=== PATIENT | male | born 1970 | race Caucasian/White ===

== ENCOUNTER → 2021-02-25 12:52 | Outpatient (CLI) | payer OTHER, SELFPAY ==
--- NOTE | 2021-02-25 12:55 | XR_ITS ---
PROCEDURE: XR CHEST 2V CLINICAL HISTORY: covid follow up COMPARISON: No exams were available for comparison FINDINGS: The cardiomediastinal silhouette and pulmonary vascularity are within normal limits. There are no previous exams available for comparison. Bilateral areas of airspace disease in the mid and lower lung zones on both sides right more extensive than left with associated atelectatic or fibrotic changes. No effusions. No acute bony abnormalities. IMPRESSION: Bilateral airspace disease in the mid and lower lung zone suggesting pneumonia with associated atelectatic and/or fibrotic change. Dictated by: Maksim Baez MD 02/25/2021 13:46 Maksim Baez MD in [place] 02/25/2021 13:46
== END ==
PROVIDERS: PCP Family Medicine; Visit Provider Family Medicine
DX: R06.00 Dyspnea, unspecified (principal); B94.8 Sequelae of other specified infectious and parasitic diseases
CPT/HCPCS: 71046

== ENCOUNTER → 2021-04-09 13:14 | Outpatient (CLI) | payer OTHER, SELFPAY ==
--- NOTE | 2021-04-09 13:17 | XR_ITS ---
FINAL REPORT CLINICAL HISTORY: F/U covid COMPARISON: February 25, 2021 FINDINGS: Two views of the chest were obtained. The heart size and pulmonary vascularity are within normal limits. The mediastinum is normal. There are persistent bilateral pulmonary opacities consistent with pneumonia. There is slight improved aeration of the right lung base. There is no pneumothorax. The bony thorax is intact. IMPRESSION: Persistent bilateral pneumonia with slight improved aeration of the right lung base. Reviewed, Interpreted and Dictated by Nelson Hernandez III, MD Transcribed by Gonzalez Smith Authenticated by Nelson Hernandez III, MD on 04/09/2021 02:48:05 PM [facility]
== END ==
PROVIDERS: PCP Family Medicine; Visit Provider Family Medicine
DX: Z99.81 Dependence on supplemental oxygen (principal); U09.9 Post COVID-19 condition, unspecified
CPT/HCPCS: 71046

== ENCOUNTER → 2021-04-17 07:44 | Outpatient (CLI) | payer OTHER, SELFPAY ==
--- NOTE | 2021-04-17 07:44 | CT_ITS ---
FINAL REPORT TECHNIQUE: Axial images were obtained from the lung apex to the mid abdomen by computed tomography. Coronal reformatted images were obtained. This study was performed with techniques to keep radiation doses as low as reasonably achievable, (ALARA). Individualized dose reduction techniques using automated exposure control or adjustment of mA and/or kV according to the patient''s size were employed. CLINICAL HISTORY: hypoxia after COVID and recurrent pneumonia pt had covid in November 2019 has been on oxygen since FINDINGS: There is no axillary adenopathy. There is no hilar or mediastinal adenopathy. Heart size is normal. There is no pericardial or pleural effusion. Limited images of the upper abdomen demonstrates postsurgical changes from cholecystectomy. On the lung window images there are multiple linear opacities throughout both lungs consistent with moderate to severe scarring/fibrosis. There are mild bilateral pulmonary ground-glass opacities which may represent edema, alveolitis, or persistent pneumonia. IMPRESSION: Moderate to severe scarring fibrosis bilaterally. Mild bilateral ground-glass opacities, may represent edema, alveolitis or persistent pneumonia. Reviewed, Interpreted and Dictated by Nelson Hernandez III, MD Transcribed by Dixie Quach Authenticated by Nelson Hernandez III, MD on 04/17/2021 09:35:20 AM [facility]
== END ==
PROVIDERS: PCP Family Medicine; Visit Provider Family Medicine
DX: J18.9 Pneumonia, unspecified organism (principal); R09.02 Hypoxemia; U09.9 Post COVID-19 condition, unspecified
CPT/HCPCS: 71250

== ENCOUNTER → 2021-09-10 09:41 | Outpatient (CLI) | payer OTHER, SELFPAY ==
[2021-09-10 10:25] VITALS: PULSE 83; PULSE 86
== END ==
PROVIDERS: PCP Family Medicine; Visit Provider Internal Medicine Pulmonary Disease
DX: J84.10 Pulmonary fibrosis, unspecified (principal)
CPT/HCPCS: 94060; 94618; 94640; 94727; 94729

== ENCOUNTER → 2021-09-13 14:00 | Outpatient (CLI) | payer OTHER, SELFPAY ==
--- NOTE | 2021-09-13 14:03 | CT_ITS ---
FINAL REPORT TECHNIQUE: Thin section axial images of the chest were obtained by computed tomography with inspiration and expiration supine and prone inspiration. High-resolution technique was performed. CLINICAL HISTORY: SOA, HYPOXIA CT CHEST HIGH RESOLUTION X 3 COMPARISON: 04/17/2021 FINDINGS: There is no evidence of mediastinal mass or adenopathy. The heart size is normal. There is no pericardial or pleural effusion. There is extensive scarring and fibrosis in both lungs, particularly at the bases. Basilar prominence is consistent with chronic fibrosis. There is no definite evidence of emphysema. No bronchiectasis is identified. Limited images of the upper abdomen show the gallbladder to be absent. There is a tiny cyst in the right lobe of the liver measuring 6 mm. IMPRESSION: No evidence of bronchiectasis or emphysema. Basilar prominence consistent with chronic fibrosis. Reviewed, Interpreted and Dictated by Gee Dye MD Transcribed by Caitlyn White Authenticated and [facility]
== END ==
PROVIDERS: PCP Family Medicine; Visit Provider Internal Medicine Pulmonary Disease
DX: J84.9 Interstitial pulmonary disease, unspecified (principal)
CPT/HCPCS: 71250

== ENCOUNTER 2021-09-26 09:55 | Outpatient (RCR) | payer OTHER, SELFPAY | END 2022-01-02 14:22 | disposition home or self-care (01) | LOC: PT 09:55 | PROVIDERS: Visit Provider Internal Medicine Pulmonary Disease | DX: J84.10 Pulmonary fibrosis, unspecified (principal) | CPT/HCPCS: G0237; G0238; G0239 ==

== ENCOUNTER 2023-04-17 16:28 | Emergency (ER) | payer OTHER, SELFPAY ==
[2023-04-17 17:30] VITALS: BP 156/87; PULSE 89; RESP 18; TEMP 36.8; O2SAT 98; BMI 27.1
--- NOTE | 2023-04-17 17:44 | EXP.UTC ---
Discharge Plan Disposition Patient Disposition: Home, Self-Care Condition: Good Prescriptions Prescriptions: New amoxicillin-pot clavulanate 875-125 mg Tablet 1 tab PO Q12H Qty: 20 0RF ibuprofen [IBU] 800 mg tablet 800 mg PO TIDP PRN (Reason: Moderate Pain) Qty: 20 0RF No Action cetirizine [Zyrtec] 10 mg tablet 10 mg PO DAILY Qty: 30 2RF fluticasone propionate [Flonase Allergy Relief] 50 mcg/actuation spray,suspension 1 spray NS DAILY Qty: 16 2RF Rx Instructions: administer into each nostril benzonatate 100 mg capsule 100 mg PO TID PRN (Reason: cough) Qty: 30 0RF Referrals Follow up/Referrals: Henri King MD [Primary Care Provider] - See instructions Activity Restrictions/Add. Instructions Additional Instructions/Restrictions: Call Dentist and make appointment Take medication as prescribed Gargle warm salt water will help with mouth irriation Use dental balls as you was directed in the [facility] Clinical Impressions Clinical Impression: Abscessed tooth Instructions Patient Instructions: DI for Tooth Abscess, Tooth Abscess, Amoxicillin and Clavulanic Acid Discharge ED Provider: Indira Zamora [facility] [place] HPI General Stated complaint: right facial swelling right ear/eye pain dizziness Mode of Arrival: Ambulatory Source of Information: Patient Limitations: No Limitations Time Seen by Provider: 04/17/23 17:44 Description of Symptoms (Recalled from Triage Doc. by RN): PATIENT C/O SWELLING AND PAIN TO RIGHT SIDE OF FACE/EYE/EAR FROM INFECTED RIGHT TOP TOOTH X 2 DAYS HEENT Symptoms (Recalled from RN notes): Yes Resp Symptoms (Recalled from RN notes): No Skin Symptoms (Recalled from RN notes): No MS Symptoms (Recalled from RN notes): No Functional Status (Recalled from RN notes): WNL History of Present Illness Provider Complaint: Patient states that he has a broken tooth on right upper back States that he put some temporary filling in it he bought over the counter States that since he has been having pain and swelling in his right jaw area that has spread over his right jaw area to up below his eye so he came in to get checked and get something to help Related Data Previous Rx's Medication Instructions Recorded benzonatate 100 mg capsule 100 mg PO TID PRN cough #30 caps 08/27/21 cetirizine 10 mg tablet (Zyrtec) 10 mg PO DAILY #30 tabs 08/27/21 fluticasone propionate 50 1 spray intranasal DAILY #16 grams 08/27/21 mcg/actuation nasal spray,suspension (Flonase Allergy Relief) amoxicillin 875 mg-potassium 1 tab PO Q12H #20 tabs 04/17/23 clavulanate 125 mg tablet ibuprofen 800 mg tablet (IBU) 800 mg PO TIDP PRN Moderate Pain 04/17/23 #20 tabs Allergies Allergy/AdvReac Type Severity Reaction Status Date / Time codeine AdvReac Verified 10/22/21 14:01 Worker's Comp Is this a Worker's Comp case?: No [facility] Disclaimer: The information contained in this section may have been updated after the patient was seen, as this information can be updated by other users. Social History Smoking Status: Never smoker alcohol intake: never current occupational status: unemployed Travel in the last 8 weeks: None ROS Obtained: Yes All systems reviewed & no additional complaints except as documented and Yes Systems reviewed as appropriate & no additional complaints except as documented Constitutional Constitutional: Reports system reviewed and no additional complaints, except as documented and Reports as per HPI ENT Ears, Nose, Mouth, and Throat: Reports system reviewed and no additional complaints, except as documented, Reports as per HPI and Reports dental pain Cardiovascular Cardiovascular: Reports system reviewed and no additional complaints, except as documented and Reports as per HPI Respiratory Respiratory: Reports system reviewed and no additional complaints, except as documented and Reports as per HPI Gastrointestinal Gastrointestingal: Reports system reviewed and no additional complaints, except as documented and as per HPI Musculoskeletal Musculoskeletal: Reports system reviewed and no additional complaints, except as documented and Reports as per HPI Physical Exam General General appearance: alert and in no apparent distress Expanded ENT Exam Teeth exam: Present dental caries, fractured tooth #, gingival swelling and other (swelling to right jaw area from abscess tooth) Respiratory Respiratory exam: Present normal lung sounds bilaterally; Absent respiratory distress or wheezes Cardiovascular Cardiovascular exam: Present regular rate, normal rhythm and normal heart sounds Neurological Exam Neurological exam: Present alert, oriented X3 and normal gait Medical Decision Making Amor Inquiry Pt receiving controlled substance: No Amor was queried for this patient: No Vital Signs: 04/17/23 17:30 Temperature 98.3 F Temperature Source Oral Pulse Rate [Left Brachial] 89 Respiratory Rate 18 Blood Pressure [Left Arm] 156/87 H Blood Pressure Mean [Left Arm] 110 Blood Pressure Source [Left Arm] Automatic Cuff Blood Pressure Position [Left Arm] Sitting 02 Sat by Pulse Oximetry 98 Oxygen Delivery Method Room Air
[2023-04-17 17:58] VITALS: BP 156/87; PULSE 89; RESP 18; TEMP 36.8; O2SAT 98
== END 2023-04-17 18:00 | disposition home or self-care (01) ==
PROVIDERS: Emergency Provider Nurse Practitioner; PCP Family Medicine
DX: K04.7 Periapical abscess without sinus (principal); R68.84 Jaw pain
CPT/HCPCS: 99204; 99212; G0463

== ENCOUNTER 2024-05-24 22:38 | Emergency (ER) | payer OTHER, SELFPAY ==
--- NOTE | 2024-05-24 22:46 | ECG_ITS ---
APPROVED REPORT Exam: Resting ECG HR:91 bpm ECG Measurements Heart Rate 91 AXES MS 167 P 68 QRSd 87 QRS 55 QT 351 T 72 QTc 399 Conclusion SINUS RHYTHM WITH OCCASIONAL VENTRICULAR PREMATURE COMPLEXES BORDERLINE ECG No STEMI Electronically signed by : JESS DIAMOND, 05/25/2024 06:50:39
[2024-05-24 22:48] VITALS: BP 180/116; PULSE 89; RESP 20; TEMP 37; O2SAT 98; BMI 25.0
--- NOTE | 2024-05-24 23:02 | XR_ITS ---
PROCEDURE INFORMATION: Exam: XR Chest Exam date and time: 05/24/2024 11:10 PM Age: 53 years old Clinical indication: Pain; Chest pressure; Additional info: Palpitations/cp TECHNIQUE: Imaging protocol: Radiologic exam of the chest. Views: 2 views. Total images: 2 COMPARISON: CT HR CHEST X3 09/13/2021 2:02 PM FINDINGS: Tubes, catheters and devices: EKG leads are present. Lungs: Chronic bibasilar interstitial coarsening/fibrosis with linear areas of scarring. No acute infiltrate, airspace consolidation or vascular congestion. No pulmonary edema. Pleural spaces: Unremarkable. No pleural effusion. No pneumothorax. Heart/Mediastinum: Unremarkable. No cardiomegaly. No mediastinal widening or hilar enlargement. Bones/joints: Stable osseous structures. IMPRESSION: 1. No radiographically acute cardiopulmonary process. 2. Stable chronic lung disease.
[2024-05-24 23:16] LABS: Basophils % 0.4 % (0.1-2.0); Eosinophils # 0.2 K/mm3 (0.0-0.4); Hematocrit 45.9 % (42.0-52.0); Hemoglobin 15.9 g/dL (14.1-18.0); Lymphocytes # 2.1 K/mm3 (0.7-4.5); Lymphocytes % 29.1 % (10-50); Mean Corpuscular HGB Conc 34.6 g/dL (31.8-35.4); Mean Corpuscular Hemoglobin 29.4 pg (27.0-31.2); Mean Corpuscular Volume 84.8 fl (80-94); Mean Platelet Volume 10.3 fl (7.4-10.4); Monocytes # 0.5 K/mm3 (0.1-1.0); Monocytes % 6.4 % (1.7-9.3); Neutrophils # 4.5 K/mm3 (1.8-7.8); Neutrophils % 61.8 % (37.0-80.0); Platelet Count 204 K/mm3 (142-424); Red Blood Count 5.41 M/mm3 (4.60-6.20); Red Cell Distribution Width 13.1 % (11.5-17.5); White Blood Count 7.3 K/mm3 (4.8-10.8)
[2024-05-24 23:20] LABS: Albumin Level 4.5 g/dl (3.5-5.0); Chloride 103 mmol/L (98-107); Potassium 3.7 mmoL/L (3.5-5.1); Sodium 136 mmol/L (136-145)
[2024-05-24 23:23] LABS: Alanine Aminotransferase 23 U/L (12-78); Albumin/Globulin Ratio 2.4 (1.1-1.8); Alkaline Phosphatase 53 U/L (38-126); Anion Gap 8.7 mEq/L (5-15); Aspartate Amino Transferase 27 U/L (17-59); Bilirubin,Total 0.7 mg/dl (0.2-1.3); Blood Urea Nitrogen 18 mg/dl (9-20); Calcium 8.9 mg/dl (8.4-10.2); Carbon Dioxide 28 mmol/L (22.0-30.0); Creatinine Clearance Estimated 96 mL/min (50-200); Estimated Glomerular Filt Rate 70 ml/min (>60); GFR (African American) 85 ML/MIN (>60); Globulin 1.9 g/dL (1.3-3.2); Glucose 145 mg/dl (74-100); Total Protein,Serum 6.4 g/dl (6.3-8.2)
[2024-05-24 23:24] LABS: INR 0.97 (0.9-1.1); Prothrombin Time 10.9 seconds (10.1-12.5)
--- NOTE | 2024-05-24 23:24 | PC.NURSE ---
Pt back from xray
[2024-05-24 23:26] VITALS: BP 153/97; PULSE 81; RESP 18; O2SAT 95
[2024-05-24] MEDS: BELLADONNA ALKALOIDS 60 ML ML PO (23:28)
[2024-05-24 23:33] LABS: NT Pro Brain Natriuretic Pep. < 20.0 pg/mL (0-125)
[2024-05-24 23:34] LABS: D-Dimer 0.34 ug/mL (0.0-0.5)
[2024-05-24 23:36] LABS: Troponin I < 0.01 ng/ml (0.00-0.034)
[2024-05-24 23:44] LABS: 25-OH Vitamin D, Total 74.7 ng/mL (30-100)
--- NOTE | 2024-05-25 00:08 | ED_ITS ---
Discharge Plan Disposition Patient Disposition: Home, Self-Care Condition: Good Prescriptions Prescriptions: No Action cetirizine [Zyrtec] 10 mg tablet 10 mg PO DAILY Qty: 30 2RF fluticasone propionate [Flonase Allergy Relief] 50 mcg/actuation spray,suspension 1 spray NS DAILY Qty: 16 2RF Rx Instructions: administer into each nostril benzonatate 100 mg capsule 100 mg PO TID PRN (Reason: cough) Qty: 30 0RF ibuprofen [IBU] 800 mg tablet 800 mg PO TIDP PRN (Reason: Moderate Pain) Qty: 20 0RF Nattokinase 50 mg Capsule 50 mg PO DAILY Referrals Follow up/Referrals: Edin Reynolds MD [Staff Physician] - See instructions (palpitations, had bad covid in 2020 and has chronic lung changes) Henri King MD [Primary Care Provider] - See instructions Activity Restrictions/Add. Instructions Additional Instructions/Restrictions: You were evaluated in the ER and are appropriate for discharge at this time. Please make an appointment with cardiology for reevaluation. You have been referred to Dr. Reynolds for this purpose. Also follow-up with your primary care doctor for reevaluation in a few days. Discuss your current labs and supplements with him. Return to the ER with any new, worsening, or otherwise concerning symptoms. Clinical Impressions Clinical Impression: Palpitations, Anxiety Print Language Print Language: Burmese Discharge ED Provider: Jaime Palmer General Adult HPI General Chief complaint: Arrhythmia/Palpitations Stated complaint: belching, palpitation, tingling in hands and feet Time Seen by Provider: 05/24/24 23:01 Mode of Arrival: Ambulatory Source of Information: Patient Description of Symptoms (Recalled from ER Triage Doc. by RN): Pt to ED with c/o intermittent palpitations starting around 1200 today. Pt reports chest tightness and anxiety starting arpprox 30 mins ago. Pt reports hx of anxiety. Denies cardiac hx. History of Present Illness HPI narrative: 53-year-old male who reports he had bad COVID in 2020 and ended up on oxygen for 8 months but has since recovered and has no other known chronic medical conditions, no daily prescriptions presents to the ER for complaints of palpitations. Patient reports he has had burping and palpitations since lunchtime today and his symptoms progressively worsened through the day until this evening he decided at this time to come to the ER for further evaluation because he was getting anxious about what was going on. He states he was having tingling in his hands and feet and felt short of breath as well. He reports no personal cardiac history. He states he takes supplements including vitamin D, nattokinase, among others. Related Data Home Medications ?Medication ?Instructions ?Recorded ?Confirmed soybean, fermented 50 mg capsule 50 mg PO DAILY 05/24/24 05/24/24 (Nattokinase) Previous Rx's ?Medication ?Instructions ?Recorded benzonatate 100 mg capsule 100 mg PO TID PRN cough #30 caps 08/27/21 cetirizine 10 mg tablet (Zyrtec) 10 mg PO DAILY #30 tabs 08/27/21 fluticasone propionate 50 1 spray intranasal DAILY #16 grams 08/27/21 mcg/actuation nasal spray,suspension (Flonase Allergy Relief) ibuprofen 800 mg tablet (IBU) 800 mg PO TIDP PRN Moderate Pain 04/17/23 #20 tabs Allergies Allergy/AdvReac Type Severity Reaction Status Date / Time codeine AdvReac Verified 10/22/21 14:01 [facility] Disclaimer: The information contained in this section may have been updated after the patient was seen, as this information can be updated by other users. Social History Smoking Status: Never smoker alcohol intake: never current occupational status: unemployed Travel in the last 8 weeks: None Have you lived/traveled outside [place] in past 30 days?: No Contact w/someone who lives/traveled outside US past 30 days?: No Exposure to someone with infectious disease in past 14 days?: No Do you have a fever (greater than 100.4 F or 38 C)?: No Have you tested positive for COVID-19: No Exposed to someone with COVID-19 in past 14 days?: No Do you have a sore throat?: No Do you have a cough?: No Do you have any weakness?: No Do you have any diarrhea?: No Are you experiencing any unusual bleeding?: No Do you have any muscle aches/pain?: No Do you have any abdominal pain?: No Are you experiencing loss of taste or smell?: No Other Medical History Have you received the Pneumonia Vaccine: No ROS Obtained: Yes Systems reviewed as appropriate & no additional complaints except as documented Per HPI Physical Exam General General appearance: alert and in no apparent distress Head Head exam: atraumatic and normocephalic Eye Eye exam: Present PERRL and EOMI ENT ENT exam: Present mucous membranes moist Neck Neck exam: Present normal inspection and full ROM Chest Chest inspection: Present symmetric chest wall rise; Absent tenderness Respiratory Respiratory exam: Present normal lung sounds bilaterally; Absent respiratory distress, wheezes or stridor Cardiovascular Cardiovascular exam: Present regular rate and normal rhythm Abdominal Exam Abdominal exam: Present soft; Absent distention or tenderness Extremities Exam Extremities exam: Present full ROM; Absent edema or calf tenderness Neurological Exam Neurological exam: Present alert and oriented X3; Absent motor sensory deficit Psychiatric Psychiatric exam: Present normal affect and normal mood Skin Skin exam: Present warm and dry Medical Decision Making Medical Records Medical records reviewed: Yes I reviewed the patient's medical records. Screening: Per USPSTF and CDC recommendations, given the prevalence of disease in our region, it is our hospital?s policy to screen for HIV and viral Hepatitis for all patients aged 18 and over and those with ongoing risk factors. MR Comment: Patient was seen in [facility] in April 2023 and diagnosed with tooth abscess. Discharged on Augmentin and ibuprofen. Amor Inquiry Pt receiving controlled substance: No Vital Signs: 05/24/24 22:48 05/24/24 23:26 Temperature 98.6 F Temperature Source Oral Pulse Rate 81 Pulse Rate [Left Radial] 89 Respiratory Rate 20 18 Blood Pressure 153/97 H Blood Pressure [Right Arm] 180/116 H Blood Pressure Mean [Right Arm] 137 Blood Pressure Source [Right Arm] Automatic Cuff Blood Pressure Position Supine Blood Pressure Position [Right Arm] Supine 02 Sat by Pulse Oximetry 98 95 Oxygen Delivery Method Room Air Room Air Lab Data Lab Results 05/24/24 22:51: WBC 7.3, RBC 5.41, Hgb 15.9, Hct 45.9, MCV 84.8, MCH 29.4, MCHC 34.6, RDW 13.1, Plt Count 204, MPV 10.3, Neut % (Auto) 61.8, Lymph % (Auto) 29.1, Crockett % (Auto) 6.4, Eos % (Auto) 2.0, Baso % (Auto) 0.4, Neut # (Auto) 4.5, Lymph # (Auto) 2.1, Crockett # (Auto) 0.5, Eos # (Auto) 0.2, Baso # (Auto) 0.0, PT 10.9, INR 0.97, D-Dimer 0.34, Sodium 136, Potassium 3.7, Chloride 103, Carbon Dioxide 28, Anion Gap 8.7, BUN 18, Creatinine 1.10, Estimated Creat Clear 96, Estimated GFR 70, Est GFR ( Amer) 85, Glucose 145 H, Calcium 8.9, Total Bilirubin 0.7, AST 27, ALT 23, Alkaline Phosphatase 53, Troponin I < 0.01, NT-Pro-B Natriuret Pep < 20.0, Total Protein 6.4, Albumin 4.5, Globulin 1.9, A lbumin/Globulin Ratio 2.4 H, 25-OH Vitamin D Total 74.7 05/24/24 22:51 05/24/24 22:51 Orders (Tests/Meds): ED MEDICATIONS Discontinued Medications Generic Name Dose Route Start Last Admin Trade Name Freq PRN Reason Stop Dose Admin Aspirin 324 mg 05/24/24 23:02 05/24/24 23:33 Aspirin 81mg Chewable Tablet PO 05/24/24 23:03 Not Given ONCE ONE Belladonna Alkaloids 60 ml 05/24/24 23:07 05/24/24 23:28 Belladonna Alkaloids 60 Ml Ml PO 05/24/24 23:08 60 ml ONCE ONE Administration ORDERS Category Date Time Status XR chest 2V Stat Exams 05/24/24 23:02 Taken 25-OH Vitamin D, Total Stat Lab 05/24/24 22:51 Completed Complete Blood Count Auto Diff Stat Lab 05/24/24 22:51 Completed Comprehensive Metabolic Panel Stat Lab 05/24/24 22:51 Completed D-Dimer Stat Lab 05/24/24 22:51 Completed NT Pro Brain Natriuretic Pep. Stat Lab 05/24/24 22:51 Completed Prothrombin Time INR Stat Lab 05/24/24 22:51 Completed Troponin I Q3H Lab 05/25/24 02:15 Ordered Troponin I Q3H Lab 05/25/24 05:15 Ordered Troponin I Stat Lab 05/24/24 22:51 Completed Medical Decision Narrative: In summary, this 53-year-old male with comorbidities described in the HPI presents to the emergency department today with palpitations, anxiety. On initial evaluation patient is hemodynamically stable, afebrile, he states he feels relieved being in the ER and his symptoms have dramatically subsided. He stated the palpitations were like his heart skipping a beat . On physical exam his cardiopulmonary exam is benign and he is saturating in the mid to upper 90s on room air. He does not have any chest pain or pressure. No difficulty breathing at this time. He states the tingling in his hands and feet has gone away. He also states his indigestion has dramatically improved. Differential diagnosis includes but is not limited to palpitations, arrhythmia, electrolyte abnormality, I considered ACS, PE, pneumothorax, anxiety, panic attack. Based on these concerns, I ordered serum labs, cardiac workup, D-dimer, BNP, chest x-ray. ECG personally interpreted demonstrates sinus rhythm with occasional PVC, rate 91, normal axis, normal MO and QTc, no STEMI or ischemic changes. Patient received belladonna alkaloids for treatment. He refused aspirin stating he cannot take it with the nattokinase supplement. Labs personally reviewed demonstrate normal CBC, normal PT/INR, D-dimer 0.34 reassuring against PE, no CTA PE indicated. Initial troponin undetectably low less than 0.01 which is significantly reassuring given patient has had symptoms for the last 10 hours, BNP undetectable which is reassuring since patient has no evidence of fluid overload clinically Chest x-ray personally interpreted does not demonstrate any acute intrathoracic abnormality, patient appears to have chronic interstitial changes likely related to his history of severe COVID. See radiology read for final interpretation which is pending at this time. On reassessment patient has had resolution of symptoms and feels back to baseline. He is resting comfortably. I believe he is appropriate for discharge at this time. He and at bedside agree with this and are comfortable with this plan. He was referred to cardiology for outpatient follow-up and reevaluation. Patient was given instructions on symptomatic monitoring and management, follow up instructions, and return precautions for the emergency department. Patient indicated understanding and was discharged in stable condition. Critical Care Critical Care Time Critical Care Time: No
[2024-05-25 00:16] VITALS: BP 168/78; PULSE 88; RESP 14; TEMP 36.6; O2SAT 100
== END 2024-05-25 00:17 | disposition home or self-care (01) ==
PROVIDERS: Emergency Provider Emergency Medicine; PCP Family Medicine
DX: R00.2 Palpitations (principal); R20.2 Paresthesia of skin; R14.2 Eructation; R06.02 Shortness of breath; F41.9 Anxiety disorder, unspecified; Z86.16 Personal history of COVID-19; Z88.5 Allergy status to narcotic agent
CPT/HCPCS: 71046; 80053; 82306; 83880; 84484; 85025; 85378; 85610; 93005; 99284